=== PATIENT | female | born 1990 | race Caucasian/White ===

== ENCOUNTER → 2019-07-19 | Outpatient (CLI) | payer OTHER ==
[~2019-07-19] MED LIST: IBUP-1222 PO; OXYC-302 PO
== END | disposition home or self-care (01) ==
LOC: EDSTATUS 07:30 → RAD 07:42
PROVIDERS: ATTEND Family Medicine
DX: K76.0 Fatty (change of) liver, not elsewhere classified (principal); K80.20 Calculus of gallbladder without cholecystitis without obstruction
CPT/HCPCS: 76705

== ENCOUNTER 2020-08-19 08:28 | Emergency (ER) | payer OTHER ==
[~2020-08-19] VITALS: Ht 165.1 cm; Wt 143.9 kg
[~2020-08-19 08:28] MED LIST changes: -OXYC-302 PO; +OXYC1TAB14 PO
[2020-08-19 09:04] LABS: BASOPHILS % (AUTO) 1 % (0-1); EOSINOPHILS % (AUTO) 2 % (1-7); LYMPHOCYTES % (AUTO) 32 % (22-44); MEAN CORPUSCULAR HEMOGLOBIN 30.2 pg (27.0-34.8); MEAN CORPUSCULAR HGB CONC 33.3 g/dL (32.4-35.8); MEAN PLATELET VOLUME 9.4 fL (7.4-10.4); MONOCYTES % (AUTO) 5 % (2-9); NEUTROPHILS % (AUTO) 61 % (42-75); PLATELET COUNT 215 x10^3/uL (130-400); RED BLOOD COUNT 4.74 x10^6/uL (3.82-5.3); RED CELL DISTRIBUTION WIDTH 13.2 % (9.6-15.2)
[2020-08-19 09:14] LABS: ALBUMIN 3.3 g/dL (3.4-5.0); ANION GAP 5 mmol/L (5-15); CALCIUM 9.4 mg/dL (8.5-10.1); CHLORIDE 109 mmol/L (98-107); CREATININE 0.67 mg/dL (0.55-1.02)
[2020-08-19] MEDS ORDERED: DEXAMETHASONE 4 MG TABLET PO ONE (09:30)
[2020-08-19] MEDS ORDERED: BUPIVACAINE/PF-EPI 0.5% 1:200K INFIL ONE (09:30)
--- NOTE | 2020-08-19 09:53 | NUR ---
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
[2020-08-19] MEDS ORDERED: AMPICILLIN/SULBACTAM 3 GM in SODIUM CHLORIDE 0.9% 100 ML IV ONE (10:00)
[2020-08-19] MEDS ORDERED: DEXAMETHASONE 4 MG TABLET ONE (10:04)
--- NOTE | 2020-08-19 10:10 | NUR ---
Pt reports swelling of tonsils and difficultly swallowing approx 1-2 months ago. She saw a teledoc for this and took full course of abx which helped and then the problem came back. Pt reports developing L ear pain associated this time. Painful swallowing and drooling at night. Denies resp involvement.
--- NOTE | 2020-08-19 10:49 | NUR ---
MD Candelario at bedside for eval.
[2020-08-19] MEDS ORDERED: BENZOCAINE 20% SPRAY 0.5ML TP ONE (11:00)
--- NOTE | 2020-08-19 12:50 | NUR ---
Awaiting ENT bedside eval.
[2020-08-19 13:27] VITALS: BP 100/65
== END 2020-08-19 13:44 | disposition home or self-care (01) ==
LOC: ED 13:38
DX: J36 Peritonsillar abscess (principal)
CPT/HCPCS: 36415; 80048; 82040; 85025; 96365; 99284; J0295